=== PATIENT | female | born 1990 | race African-American/Black ===

== ENCOUNTER 2023-11-10 23:16 | Emergency (ER) | payer OTHER, SELFPAY ==
[2023-11-10 23:23] VITALS: BP 123/89; PULSE 97; RESP 16; TEMP 36.9; O2SAT 97
--- NOTE | 2023-11-10 23:27 | ED_ITS ---
HPI - Neck Pain/Injury General Chief Complaint: Abdominal Pain Stated Complaint: RT NECK/SHOULDER PAIN/VISION ISSUES Time Seen by Provider: 11/10/23 23:27 History of Present Illness HPI Narrative: This 33-year-old female presents for evaluation of eft lower quadrant abdominal pain. She thinks that she may have had an ovarian cyst rupture. She states she is having intermittent sharp stabbing and then left lower quadrant dull aching. She denies the possibility of . She does not get menstrual periods after having a tubal ligation and uterine ablation. She also has right-sided neck and shoulder pain with decreased range of motion after having a chiropractic manipulation on October 21. She has pain with rotatory movement of her neck and complained of some visual changes. Seen at [facility] yesterday, 11/09/[address] scan of the brain done for intermittent double vision that was negative for acute findings. She denies any nausea or vomiting. Her abdominal pain is associated with some mild lower flank pain. She has no urinary symptoms. She has not had a fever. She does not have a history of kidney stones. She states that she was talking to a nurse practitioner friend of hers who suggested that she get a Medrol Dosepak for her neck and shoulder pain. At this time she is not having any visual difficulty weakness numbness or tingling on the neck or shoulder area or right upper extremity but does have pain in the right proximal shoulder area and states she cannot sleep at night due to the discomfort. Related Data Home Medications ?Medication ?Instructions ?Recorded ?Confirmed dextroamphetamine-amphetamine 10 11/10/23 mg tablet prazosin 1 mg capsule mg 11/10/23 varenicline 0.5 mg tablet mg 11/10/23 Allergies Allergy/AdvReac Type Severity Reaction Status Date / Time No Known Drug Allergies Allergy Verified 11/10/23 23:29 Review of Systems ROS Status of ROS 10 or more systems reviewed and unremark able except as noted in history and below Exam Narrative Exam Narrative: Nurses note and vital signs reviewed and patient is not hypoxic. General: The patient appears well and in no apparent distress. Patient appears comfortable on the Stretcher, she is sitting Algerian style and moves easily about the stretcher. No respiratory distress Skin: Warm, dry, no pallor noted. There is no rash noted. Head: Normocephalic, atraumatic Eye: Normal conjunctiva, no drainage, EOMI. PERRL Ears, Nose, Mouth, and Throat: oral mucosa is moist. Neck: no midline bony vertebral tenderness or step-off, trachea is midline, no venous or arterial pulsations noted Cardiovascular: Regular Rate and Rhythm S1S2, no murmurs, rubs or gallops, pulses are brisk and equal bilaterally Respiratory: Patient is in no distress, no accessory muscle use, lungs are clear to auscultation, no wheezing, rales or rhonchi Back: non-tender, no CVA tenderness bilaterally to percussion. GI: Normal bowel sounds, mild tenderness to palpation in LLQ without guarding or rigidity Musculoskeletal: The patient has no evidence of calf tenderness, no pitting edema, symmetrical pulses noted bilaterally, tenderness with muscle spasm in right SCM and scalene muscles Neurological: A&O x4, normal speech Psychiatric: Cooperative Constitutional Vital Signs, click to edit/add: Last Vital Signs Temp 98.4 F 11/10/23 23:23 Pulse 97 H 11/10/23 23:23 Resp 16 11/10/23 23:23 BP 123/89 11/10/23 23:23 Pulse Ox 97 11/10/23 23:23 Course Vital Signs Vital signs: Vital Signs Temperature 98.4 F 11/10/23 23:23 Pulse Rate 97 H 11/10/23 23:23 Respiratory Rate 16 11/10/23 23:23 Blood Pressure 123/89 11/10/23 23:23 Pulse Oximetry 97 11/10/23 23:23 Temperature 98.4 F 11/10/23 23:23 Pulse Rate 97 H 11/10/23 23:23 Respiratory Rate 16 11/10/23 23:23 Blood Pressure 123/89 11/10/23 23:23 Pulse Oximetry 97 11/10/23 23:23 MDM - Neck Pain/Injury MDM Narrative Medical decision making narrative: 33-year-old female presents for evaluation of multiple leads. Her main complaint today is left lower quadrant abdominal pain. She thinks that she has ruptured an ovarian cyst. He states she had sudden sharp pain earlier in the day and now a dull ache. At times there is mild pain in her low back. She also has pain and muscle spasm in her right sternocleidomastoid and scalene muscles after chiropractic manipulation on October 21. She was seen after that by a different chiropractor. She has not had any massage. She has not been taking any medications for this discomfort. She was at [facility] yesterday and had a CT scan done of her brain after complaining of visual changes that she felt were likely related to her neck spasm. She does not have any focal neurologic deficits. Her neuro exam is normal. There is no pulsatile neck masses. I do not suspect that she has a vertebral artery dissection as her symptoms are 3 weeks old. She was mildly tender in the left lower quadrant. She is not having any nausea or vomiting. Clinically I did not have a high suspicion that she was having an ovarian cyst or torsion because of her level of comfort as she was sitting on the stretcher with her knees bent Algerian style and easily moves about the room. Routine labs are ordered and reviewed. She has a normal white count and hemoglobin. Urine is negative for infection. Electrolytes are normal. ERP was normal. She is medicated with IM Toradol as she declined an IV. Noncontrast CT scan abdomen and pelvis which is included in the body of report as negative for acute findings. I discussed the CAT scan with her and she was given a copy of it to share with her family physician. Reevaluation she stated she was feeling better. She did request a Medrol Dosepak for the shoulder pain and neck spasms she is appreciating after having a chiropractic manipulation and this was provided to her at the time of discharge. Medical Records Medical records narrative: [place] [address] CT Scan Report Signed Patient: ANGELITO MALDONADO MR#: [id number] : 1990 Acct:[id number] Age/Sex: 33 / F ADM Date: 11/10/23 Loc: ER Attending Dr: Ordering Physician: Julianna Yi Date of Service: 11/11/23 Procedure(s): CT abdomen pelvis wo con Accession Number(s): [id number] cc: PhysicianNon-Staff Sha~ The [place] [id number] Patient Name: ANGELITO MALDONADO MRN: [id number] date: 1990 Sex: F Assigned Patient Location: ER Current Patient Location: ER Accession/Order Number: [id number] Exam Date: 11/11/2023 01:15 Report Date: 11/11/2023 01:34 At the request of: JULIANNA MARKER Procedure: CT abdomen pelvis wo con EXAM: CT abdomen pelvis wo con HISTORY: LLQ abd pain . Left lower quadrant abdominal pain COMPARISON: None. TECHNIQUE: Unenhanced CT imaging of the abdomen and pelvis. This CT exam was performed using one or more of the following dose reduction techniques: Automated exposure control, adjustment of the mA and/or KV according to patient size, or use of iterative reconstruction technique. Unless otherwise stated, incidental findings do not require dedicated follow-up imaging. FINDINGS: The lung bases are clear. The heart size is normal. The liver, spleen, pancreas, adrenal glands, and kidneys have a grossly normal noncontrast enhanced appearance. There is no hydronephrosis. The gallbladder is contracted. The bowel is unobstructed. The appendix is normal. There is no free fluid or free air within the abdomen or pelvis. The urinary bladder is decompressed. The bones are intact without acute abnormality. CT/CT abdomen pelvis wo con IMPRESSION: No acute abnormality of the abdomen or pelvis. Electronically authenticated by: JACQUELIN NOVAK Date: 11/11/2023 01:34 Lab Data Attestation: I reviewed the patient's lab results. Labs: Lab Results 11/11/23 11/11/23 Range/Units 00:50 00:55 WBC 9.2 (4.0-11.0) 10^3/uL RBC 4.09 L (4.20-5.40) 10^6/uL Hgb 12.9 (12.0-16.0) g/dL Hct 38.4 (36.0-48.0) % MCV 93.9 (81.0-99.0) fL MCH 31.5 (26.7-34.0) pg MCHC 33.6 (29.9-35.2) g/dL RDW 13.0 (11.0-15.0) % Plt Count 344 (150-450) 10^3/uL MPV 9.1 L (9.5-13.5) fL Neut % (Auto) 73.4 (43.0-75.0) % Lymph % (Auto) 18.7 L (20.5-60.0) % Todd % (Auto) 5.7 (1.7-12.0) % Eos % (Auto) 1.5 (0.9-7.0) % Baso % (Auto) 0.4 (0.2-2.0) % Neut # (Auto) 6.7 H (1.4-6.5) 10^3/uL Lymph # (Auto) 1.7 (1.2-3.8) 10^3/uL Todd # (Auto) 0.5 (0.3-0.8) 10^3/uL Eos # (Auto) 0.1 (0.0-0.7) 10^3/uL Baso # (Auto) 0.0 (0.0-0.1) 10^3/uL Abs Immat Gran (auto) 0.03 (0.00-0.03) 10^3/uL Imm/Tot Granulo (auto) 0.3 (0.0-0.5) % Sodium 137 (136-145) mmol/L Potassium 3.9 (3.5-5.1) mmol/L Chloride 104 (98-107) mmol/L Carbon Dioxide 27.7 (21.0-32.0) mmol/L Anion Gap 9.2 BUN 10.0 (7.0-18.0) mg/dL Creatinine 0.75 (0.55-1.02) mg/dL Est GFR ( Amer) >60 (>=60) Est GFR (Non-Af Amer) >60 (>=60) BUN/Creatinine Ratio 13.3 Glucose 100 (74-106) mg/dL Calcium 9.1 (8.5-10.1) mg/dL C-Reactive Protein <0.50 (<=0.50) mg/dL Urine Color Dk. yellow (YELLOW) Urine Clarity Clear (CLEAR) Urine pH 5.0 (5.0-9.0) Ur Specific [place] >=1.030 A (1.005-1.025) Urine Protein Trace (NEG/TRACE) mg/dL Urine Glucose (UA) Negative (NEGATIVE) mg/dL Urine Ketones Trace A (NEGATIVE) mg/dL Urine Occult Blood Negative (NEGATIVE) Urine Nitrite Negative (NEGATIVE) Urine Bilirubin Negative (NEGATIVE) Urine Urobilinogen 1.0 (0.2-1.0) EU/dL Ur Leukocyte Esterase Negative (NEGATIVE) Urine RBC None seen (0-2) #/HPF Urine WBC 0-2 A (NONE SEEN) #/HPF Ur Squamous Epith Cells Many A (NONE/RARE) #/LPF Urine Crystals Seen A (None Seen) #/HPF Calcium Oxalate Crystal Many Amorphous Sediment Few Urine Bacteria None seen (NONE SEEN) #/HPF Urine Casts None seen (NONE SEEN) #/LPF Urine Mucus Moderate A (NONE SEEN) Ur Culture Indicated? No Discharge Plan Discharge Stand Alone Forms: Portal Instructions Chief Complaint: Abdominal Pain Clinical Impression: Abdominal pain, LLQ, Cervical myofascial strain Patient Disposition: Home, Self-Care Time of Disposition Decision: 02:21 Condition: Good Prescriptions / Home Meds: No Action prazosin 1 mg capsule dextroamphetamine-amphetamine 10 mg tablet varenicline 0.5 mg tablet Print Language: Wolof Instructions: Cervical Strain (DC), Muscle Strain (ED), Abdominal Pain (ED) Referrals: Physician,Non-Staff, MD [Primary Care Provider] - 1 week
--- NOTE | 2023-11-11 00:26 | PC.NURSE ---
Double vision, resolved
--- NOTE | 2023-11-11 00:31 | PC.NURSE ---
No Pain with palpation to the abdomen
--- NOTE | 2023-11-11 00:47 | CT_ITS ---
The [address] [address] Patient Name: ANGELITO MALDONADO MRN: [id number] date: 1990 Sex: F Assigned Patient Location: ER Current Patient Location: Accession/Order Number: [id number] Exam Date: 11/11/2023 01:15 Report Date: 11/11/2023 01:34 At the request of: PIERCE MARKER Procedure: CT abdomen pelvis wo con EXAM: CT abdomen pelvis wo con HISTORY: LLQ abd pain . Left lower quadrant abdominal pain COMPARISON: None. TECHNIQUE: Unenhanced CT imaging of the abdomen and pelvis. This CT exam was performed using one or more of the following dose reduction techniques: Automated exposure control, adjustment of the mA and/or KV according to patient size, or use of iterative reconstruction technique. Unless otherwise stated, incidental findings do not require dedicated follow-up imaging. FINDINGS: The lung bases are clear. The heart size is normal. The liver, spleen, pancreas, adrenal glands, and kidneys have a grossly normal noncontrast enhanced appearance. There is no hydronephrosis. The gallbladder is contracted. The bowel is unobstructed. The appendix is normal. There is no free fluid or free air within the abdomen or pelvis. The urinary bladder is decompressed. The bones are intact without acute abnormality. CT/CT abdomen pelvis wo con IMPRESSION: No acute abnormality of the abdomen or pelvis. Electronically authenticated by: JACQUELIN NOVAK Date: 11/11/2023 01:34
[2023-11-11 01:04] LABS: Basophils Percent Auto 0.4 % (0.2-2.0); Eosinophils Absolute Auto 0.1 10^3/uL (0.0-0.7); Eosinophils Percent Auto 1.5 % (0.9-7.0); Hematocrit 38.4 % (36.0-48.0); Hemoglobin 12.9 g/dL (12.0-16.0); Immature Granulocytes Abs Auto 0.03 10^3/uL (0.00-0.03); Immature Granulocytes Pct Auto 0.3 % (0.0-0.5); Lymphocytes Absolute Auto 1.7 10^3/uL (1.2-3.8); Lymphocytes Percent Auto 18.7 % (20.5-60.0); Mean Corpuscular HGB Conc 33.6 g/dL (29.9-35.2); Mean Corpuscular Hemoglobin 31.5 pg (26.7-34.0); Mean Corpuscular Volume 93.9 fL (81.0-99.0); Mean Platelet Volume 9.1 fL (9.5-13.5); Monocytes Absolute Auto 0.5 10^3/uL (0.3-0.8); Monocytes Percent Auto 5.7 % (1.7-12.0); Neutrophils Absolute Auto 6.7 10^3/uL (1.4-6.5); Neutrophils Percent Auto 73.4 % (43.0-75.0); Platelet Count 344 10^3/uL (150-450); Red Blood Count 4.09 10^6/uL (4.20-5.40); White Blood Count 9.2 10^3/uL (4.0-11.0)
[2023-11-11 01:13] LABS: Anion Gap 9.2; BUN Creatinine Ratio 13.3; C Reactive Protein <0.50 mg/dL (<=0.50); Calcium 9.1 mg/dL (8.5-10.1); Carbon Dioxide 27.7 mmol/L (21.0-32.0); Chloride 104 mmol/L (98-107); Estimated GFR (African America >60 (>=60); Estimated GFR (Non-African Ame >60 (>=60); Glucose 100 mg/dL (74-106); Potassium 3.9 mmol/L (3.5-5.1); Sodium 137 mmol/L (136-145)
[2023-11-11 01:17] LABS: Bilirubin Urine NEGATIVE (NEGATIVE); Blood Urine NEGATIVE (NEGATIVE); Clarity Urine CLEAR (CLEAR); Color Urine DK. YELLOW (YELLOW); Glucose Urine UA NEGATIVE (NEGATIVE); Ketones Urine TRACE mg/dL (NEGATIVE); Leukocyte Esterase Urine NEGATIVE (NEGATIVE); Nitrite Urine NEGATIVE (NEGATIVE); Protein Urine TRACE mg/dL (NEG/TRACE); Specific Gravity Urine >=1.030 (1.005-1.025)
[2023-11-11] MEDS: KETOROLAC TROMETHAMINE 60 MG/2 ML VIAL IM (01:25)
[2023-11-11 01:26] LABS: Bacteria Urine NONE SEEN #/HPF (NONE SEEN); Calcium Oxalate Crystals Urine MANY; Crystals Seen? Seen #/HPF (None Seen); Mucus Urine MODERATE (NONE SEEN); RBC Urine NONE SEEN #/HPF (0-2); Squamous Epithelial Cell Urine MANY #/LPF (NONE/RARE); WBC Urine 0-2 #/HPF (NONE SEEN)
[2023-11-11 01:27] LABS: Amorphous Sediment Urine FEW; Cast Seen? NONE SEEN #/LPF (NONE SEEN)
[2023-11-11 01:28] LABS: Urine Culture Indicated NO
[2023-11-11 02:33] VITALS: BP 105/69; PULSE 60; RESP 18; O2SAT 99
== END 2023-11-11 02:34 | disposition home or self-care (01) ==
PROVIDERS: Emergency Provider Emergency Medicine
DX: R10.32 Left lower quadrant pain (principal); M62.838 Other muscle spasm; Z98.51 Tubal ligation status; M54.2 Cervicalgia; M25.511 Pain in right shoulder
CPT/HCPCS: 36415; 74176; 80048; 81001; 85025; 86140; 96372; 99284

== ENCOUNTER 2025-07-13 18:06 | Emergency (ER) | payer BC, SELFPAY ==
--- OUTSIDE RECORDS SUMMARY | 2024-01-26 04:15 | XMS_ITS ---
Author Organization [facility] vices Address [address] [place], [place] [id number] Care Team Providers Care Fly Worker Name Role Phone Sandra Correa Unavailable [phone] REASON FOR VISIT wellness Social History Sex Assigned At : Social History Observation Description Sex Assigned At Female Encounters Encounter Location Date Provider Diagnosis Main [address] [place], [place] [id number] 01/26/2024 Sandra Correa Plan Of Treatment No Information Progress Notes * Sahara MALDONADOOB: [birth year] (34 yo F)Acc No.[id number]:01/26/2024 Progress Notes Patient: Sofía Castellanos :?Sandra Correa NPDOB:1990???Age:33 Y???Sex: FemaleDate:4Phone:[phone]:2 [facility] Subjective: * Chief Complaints: * W ellness Billing Information: * Procedure Codes: * Electronic signature of Sandra Correa NP on 07/13/2025 at 06:48 PM ESTSign off status: Pending * Provider: Angel Correa NP Date: 0 01/26/2024 Generated for Printing/Faxing/eTransmitting on:?07/13/2025 06:48 PM EST
--- OUTSIDE RECORDS SUMMARY | 2025-01-08 05:00 | XMS_ITS ---
Author Organization [facility] vices Address [address] [place], [place] [id number] Care Team Providers Care Railway Equipment Operator Name Role Phone Maricel Sales Unavailable [phone] REASON FOR VISIT Wellness Social History Sex Assigned At : Social History Observation Description Sex Assigned At Female Encounters Encounter Location Date Provider Diagnosis Third [address] [facility] [place] [address] [place] [address] 01/08/2025 Maricel Sales Plan Of Treatment No Information Progress Notes * JOEL, RainaraDOB: [birth year] (34 yo F)Acc No.[id number]:01/08/2025 Progress Notes Patient: Sofía Castellanos :?LATIA TeagueOB:1990???Age:34 Y ???Sex:FemaleDate:01/08/2025Phone:[phone]:[address] [place], [place] Subjective: * Chief Complaints: * W ellness * Electronic signature of Maricel Sales MD on 07/13/2025 at 06:47 PM ESTSign off status: Pending * Provider: Halina Sales MD Date: 0 01/08/2025 Generated for Printing/Faxing/eTransmitting on:?07/13/2025 06:47 PM EST
[2025-07-13 18:31] VITALS: BP 100/72; PULSE 105; TEMP 37.2; O2SAT 100; BMI 21.0
--- OUTSIDE RECORDS SUMMARY | 2025-07-13 18:48 | XMS_ITS | Clinical Summary ---
Author Organization [employer] tem Address [id number] [address] [place] [address] Care Team Providers Care Branch Sales Manager Name Role Phone Services, [facility] Primary Care Provider Allergies No known active allergies Medications * This document contains information received from the source organization and may not represent a complete record from that organization. MedicationSigDispense QuantityRefillsLast FilledStart DateEnd DateStatus dextroamphetamine-amphetamine (ADDERALL) 10 mg tablet Take 1.5 tablets (15 mg total) by mouth in the morning. 1-2 timeday daily .10/09/2023ctive ondansetron ODT (ZOFRAN ODT) 4 mg disintegrating tablet Dissolve 1 tablet (4 mg total) on tongue every 8 (eight) hours as needed for nausea for up to 10 doses. 10 tablet 05/06/2024ctive prazosin (MINIPRESS) 1 mg capsule Take 2 capsules (2 mg total) by mouth as needed.11/16/2023ctive doxepin (SINEquan) 10 mg capsule Take 25 mg by mouth nightly.Active ocrelizumab (OCREVUS) 30 mg/mL injection Infuse into a venous catheter.Active lisdexamfetamine (VYVANSE) 50 mg capsule Take 1 capsule (50 mg total) by mouth every morning. Max Daily Amount: 50 mg Active escitalopram (LEXAPRO) 20 mg tablet Take 1 tablet (20 mg total) by mouth in the morning.Active Active Problems ProblemNoted DateDiagnosed VxeyCxupnpi06/20/2024ttention deficit hyperactivity disorder (ADHD), predominantly inattentive type02/04/2023Mild episode of recurrent major depressive kicbrper91/01/2023eneralized anxiety disorder 10/21/2022lcohol use disorder in zcpnzfeam53/01/2023Encounter for female sterilization lididbtnb60/13/2021 Encounters DateTypeDepartmentCare OcbhVygwbzcsrtk79/09/2025 7:17 PM EDT - 05/01/2025 7:37 PM EDTEmergency [facility] [address] [place] [address] Srinivasa Parson MD Skin avulsion (Primary Dx) Discharge Disposition: Home05/01/2025Travelfrom Last 3 Months Immunizations ImmunizationAdministration DatesNext NkqSdtf8305/01/2025 Family History Medical HistoryRelationNameCommentsDiabetesFatherLonnie McGheeHeart disease FatherLonnie McGheeCancerMaternal GrandfatherlungBil Breast CancerMaternal GrandmotherNancy FrischBreast cancerMaternal GrandmotherNancy FrischOvarian cancerMaternal GrandmotherNancy FrischNo Known ProblemsMotherColon cancerNeg Hx RelationNameStatusCommentsFatherLonnie McGheeAliveMaternal GrandfatherMaternal GrandmotherNancy FrischMotherAlive Social History Tobacco UseTypesPacks/DayYears UsedDateSmoking Tobacco: Every DayCigarettes Vaping/E-cigarettesSmokeless Tobacco: Never Tobacco Cessation:Ready to Q uit: Not Asked; Counseling Given: Not Answered Alcohol UseStandard Drinks/WeekCommentsNot Currently0 (1 standard drink = 0.6 oz pure alcohol)formerPHQ-2AnswerDate RecordedTotal Monrm1856/16/2025Childcare AnswerDate TaefotsqZgfirhybpGsdwfhb25/12/2019EmploymentAnswerDate Recorded LavekdzsbyYgbqzwt13/12/2019Hunger ScreeningAnswerDate RecordedWithin the past 12 months we worried whether our food would run out before we got money to buy more.Never True05/01/2025Within the past 12 months the food we bought just didn't last and we didn't have money to get more.Never True05/01/2025Purpose - LifeAnswerDate RecordedPurpose and direction in phlsKaekwjo14/20/2021ducation AnswerDate RecordedWhat is the highest level of school you have completed or the highest degree you have received?Associate degree: academic xtbztmf3610/21/2022 CommentsNoSex and Gender InformationValueDate RecordedSex Assigned at BirthNot on fileLegal DmqRgnhju58/06/2015 11:58 AM EDTGender IdentityNot on file Sexual OrientationNot on file Last Filed Vital Signs Vital SignReadingTime TakenCommentsBlood Ycngoghe912/9009 7:14 PM EDT Pnbnx190505/01/2025 7:14 PM AYDStyopmohkfp13.8 ??C (98.3 ??F)05/01/2025 7:10 PM EDTRespiratory Gtvc937205/01/2025 7:14 PM EDTOxygen Puflmnylzx714%05/01/2025 7:14 PM EDTInhaled Oxygen Concentration--Ahnopi66.4 kg (120 lb)05/01/2025 7:14 PM EDT Bxlihc399.5 cm (5' 2 )05/01/2025 7:14 PM EDTBody Mass Index21.95005/01/2025 7:14 PM EDT Plan of Treatment Health MaintenanceDue DateLast DoneCommentsTobacco Bbmmcdldkc1992COVID-19 Vaccine ( season), 07/25/2021, 12/27/2020, Additional history existsInfluenza Ugjnudg04, 06/24/2021, 08/04/2018, Additional history existsDepression Bojsbybnz07/ Adult BMI Lgmfdmslz56Tobacco Nfjnqwcor01Pap Smear/, 02/05/2025DTaP,Tdap and Td Vaccines (7 - Td or Tdap) , 11/23/1997, 01/22/1994, Additional history exists Medical Devices Not on file Procedures Procedure NamePriorityDate/TimeAssociated DiagnosisCommentsTHIN PREP PAP TEST Qtqbmom9002/05/2025 1:05 PM EDT Cervical smear, as part of routine gynecological examination from Last 3 Months or Most Recently Relevant to Health Maintenance Results * Thin Prep Pap Test (02/05/2025 1:05 PM EDT)ComponentValueRef RangeTest Method Analysis TimePerformed AtPathologist SignatureCase ReportGynecologic Cytology Report ? Case: [id number] ? Authorizing Provider: ??Sofia Atkinson MD ? Collected: ? 02/05/2025 1305 ? Ordering Location: ? [facility] ? Received: ?02/05/2025 1305 ? Obstetrics/Gynecology ? First Screen: ?Salvador Santoro, ? CT(ASCP) ? Specimen: ?Thin Prep Pap, Cervix ? 02/06/2025 11:42 AM [facility] LABORATORYSpecimen Adequacy Satisfactory for evaluation, endocervical/transformation zone component present 02/06/2025 11:42 AM [facility] LABORATORYInterpretationNEGATIVE FOR INTRAEPITHELIAL LESION OR MALIGNANCYNEGATIVE FOR INTRAEPITHELIAL LESION OR MALIGNANCY, UNSATISFACTORY, EPITHELIAL CELL ABNORMALITY, GLANDULAR EPITHELIAL CELL ABNORMALITY. , SQUAMOUS EPITHELIAL CELL ABNORMALITY, NO DIAGNOSIS RENDERED. 02/06/2025 11:42 AM [facility] at 1142 EDTOther Lwzfrahk08/17/2025 11:42 AM [facility] LABORATORYComment: This ThinPrep slide could not be successfully imaged by the [facility] ThinPrep Imaging System so it was manually screened. Additional InformationThe Pap test is a screening test with an inherent, but low, probability of error. The Pap test is primarily effective for the diagnosis and prevention of squamous cell carcinoma. Regular screening iscritical for prevention. ThinPrep liquid-based slides, which meet the Nutritionist Public Health criteria for automated screening, have been screened by the ThinPrep Imaging System (as of 05/09/07) along with an additional manual rescreening by a service and repair supervisor and, if indicated, by a pathologist.02/06/2025 11:42 AM [facility] LABORATORYClinical FzlegkucyjyRpwp23/17/2025 11:42 AM [facility] LABORATORYEmbedded Kjwfri2702/06/2025 11:42 AM [facility] LABORATORYSpecimen (Source)Anatomical Location / LateralityCollection Method / VolumeCollection TimeReceived TimeThinPrep cytology technique (qualifier value) Cervix uteri structure / Bpzphkk6702/05/2025 1:05 PM EDT02/05/2025 1:05 PM EDT Narrative Authorizing ProviderResult TypeResult StatusCorie Angel Atkinson MDPATHOLOGY/CYTOLOGY ORDERABLESFinal ResultPerforming OrganizationAddressCity/State/ZIP CodePhone Number [facility] [address] [place] [address], [place] [phone] from Last 3 Months or Most Recently Relevant to Health Maintenance Insurance Care Teams Team MemberRelationshipSpecialtyStart DateEnd Date Services, [facility] [address] [place], [place] PCP - GeneralFamily Medicine05/01/25
--- OUTSIDE RECORDS SUMMARY | 2025-07-13 18:48 | XMS_ITS | Patient Health Record ---
Author Organization [facility] Address [address] [place] [address] Care Team Providers Care Security Installer Name Role Phone Gwen Lang Unavailable [phone] Reason For Referral No Information Problems Problem Type SNOMED Code ICD Code Onset Dates Problem Status W/U Status Risk Notes Problem Recurrent major depr ession (disorder) (06528853) Major depressive disorder, recurrent (F33.9) ActiveconfirmedProblemAttention deficit hyperactivity disorder, predominantly inattentive type (24104228)ADHD, predominantly inattentive type (F90.0)Active confirmed Plan Of Treatment No Information Insurance Providers Payer Name Payer Address Payer Phone Subscriber Number Group Number Insured Name Patient Relationship to Insured Coverage Start Date Coverage End Date ANTHEM Primary [address] [place] [phone] [id number] HOPE MALDONADO Self - patient is the insured 3
--- OUTSIDE RECORDS SUMMARY | 2025-07-13 18:48 | XMS_ITS | Clinical Summary ---
Author Organization [facility] Healthcare Address [address] [place] [address] Care Team Providers Care Accreditation Specialist Name Role Phone Unallocated, [facility] Provi anil Allergies No known active allergies Medications MedicationSigDispense QuantityRefillsLast FilledStart DateEnd DateStatus amphetamine-dextroamphetamine XR (Adderall XR) 10 MG 24 hr capsule Take 10 mg by mouth in the morning and 10 mg before bedtime. Do not crush or chew..Active varenicline (Chantix) 0.5 MG tablet Take 1 mg by mouth Daily11/01/2023ctive DULoxetine (Cymbalta) [address] capsule Take 30 mg by mouth Daily01/14/2024ctive hydrOXYzine pamoate (Vistaril) 25 MG capsule Take 25 mg by mouth in the morning and 25 mg in the evening and 25 mg before bedtime.Active prazosin (Minipress) 1 MG capsule Take 1 mg by mouth at bedtimeActive amphetamine-dextroamphetamine (Adderall) 15 MG tablet Take 1 tablet by mouth in the morning and 1 tablet before bedtime.03/13/2024 Active tiZANidine (Zanaflex) 2 MG tablet Indications:Multiple sclerosisTAKE 1 TABLET BY MOUTH EVERY 8 HOURS NEEDED FOR MUSCLE SPASM 90 tablet ctive busPIRone (Buspar) 15 MG tablet Take 15 mg by mouth in the morning and 15 mg before bedtime.Active Active Problems ProblemNoted DateDiagnosed DateDifficulty fqccjjbexrhvr73/06/2024Encounter for neuropsychological qefndey2401/27/2024ttention deficit hyperactivity disorder (ADHD), predominantly inattentive type01/27/2024Severe episode of recurrent major depressive disorder, without psychotic aafzmnqv17/06/2024Generalized anxiety zscxedpo06/06/0095Oxvznexj15/06/0954Xwadlnfs93/06/2024 Family History Medical HistoryRelationNameCommentsDiabetesFatherHypertensionFatherMental illnessFatherAlcohol abuseMotherLisa BarlekampAnxiety disorderMotherLisa BarlekampDepressionMotherLisa BarlekampMental illnessMotherLisa Barlekamp RelationNameStatusCommentsFatherAliveMotherLisa BarlekampAlive Social History Tobacco UseTypesPacks/DayYears UsedDateSmoking Tobacco: FormerCigarettes0.33 Tobacco Cessation:Counseling Given: Not Answered Alcohol UseStandard Drinks/WeekCommentsNot Currently0 (1 standard drink = 0.6 oz pure alcohol)CommentsUnknownSex and Gender InformationValueDate Recorded Sex Assigned at BirthNot on fileLegal KylHsaiax53/15/2023 6:33 PM EDTGender IdentityNot on fileSexual OrientationNot on file Last Filed Vital Signs Vital SignReadingTime TakenCommentsBlood Xfisnlli117/7310 1:46 PM EDT Ogcmq930105/01/2024 4:03 PM EDTTemperature--Respiratory Scvk074101/31/2024 9:16 AM EDTOxygen Lxgzzmhiub58%01/31/2024 9:16 AM EDTInhaled Oxygen Concentration-- Rmeigk82.4 kg (115 lb 9.6 oz)05/29/2024 1:46 PM DKIXszmok983.5 cm (5' 2 ) 04/04/2024 8:49 AM EDTBody Mass Index21.1408 8:49 AM EDT Plan of Treatment Health MaintenanceDue DateLast DoneCommentsCOVID-19 Vaccine ( season) , 12/27/2020, 11/29/2020Influenza Vaccine (#1)2025 06/24/2021, 08/04/2018, 12/22/2011Pap Smear806/, 02/05/2025 Cervical Cancer Lnyupaupx62/16/2030HPV/Gfmrcs86Pneumococcal Vaccine: Pediatrics (0 to 5 Years) and At-Risk Patients (6 to 64 Years)Aged Out No longer eligible based on patient's age to complete this topic Insurance Care Teams Team MemberRelationshipSpecialtyStart DateEnd Date Unallocated, [place] Provider, [address] [place], [place] [id number] [facility] - [facility]24
== END 2025-07-13 20:01 | disposition left against medical advice (07) ==
PROVIDERS: Emergency Provider Emergency Medicine
DX: Z53.21 Procedure and treatment not carried out due to patient leaving prior to being seen by health care provider (principal)
CPT/HCPCS: 99281